=== PATIENT | male | born 1970 | race Caucasian/White ===

== ENCOUNTER 2020-06-30 19:51 | Emergency (ER) | payer OTHER ==
[~2020-06-30] VITALS: Ht 182.9 cm; Wt 131.5 kg
[2020-06-30 19:55] VITALS: BP_SYST 125
[2020-06-30] MEDS ORDERED: BACITRACIN ZINC 15 GM TOPICAL OINTMENT TP ONE (20:15)
[2020-06-30] MEDS ORDERED: DIPH-TET-PERTUS Vaccine 0.5 ML VIAL (ADACEL) I.M. ONE ×2 (20:15→20:33)
[2020-06-30] MEDS ORDERED: LIDOCAINE 1%, 20 ML MDV 20 ML ONE (20:24)
[2020-06-30] MEDS ORDERED: BACITRACIN 1 GM OINT TP ONE (20:32)
[2020-06-30 20:40] VITALS: BP_SYST 156
== END 2020-06-30 20:40 | disposition home or self-care (01) ==
LOC: SED 19:51
DX: S91.312A Laceration without foreign body, left foot, initial encounter (principal); W01.190A Fall on same level from slipping, tripping and stumbling with subsequent striking against furniture, initial encounter; Y93.89 Activity, other specified; Y92.89 Other specified places as the place of occurrence of the external cause; Y99.8 Other external cause status
CPT/HCPCS: 12001; 90471; 90715; 99283; J2001